=== PATIENT | female | born 1955 | race Caucasian/White ===

== ENCOUNTER → 2018-02-26 | Outpatient (CLI) | payer BC ==
[2018-02-26 11:16] LABS: HEMATOCRIT 39.9 % (36.0-47.0); HEMOGLOBIN 13.8 g/dl (12.0-15.5); MEAN CORPUSCULAR HEMOGLOBIN 31.8 pg (27.0-33.0); MEAN CORPUSCULAR HGB CONC 34.6 g/dl (32.0-36.5); MEAN CORPUSCULAR VOLUME 91.9 fl (80.0-96.0); PLATELET COUNT, AUTOMATED 241 10^3/uL (150-450); RED BLOOD COUNT 4.34 10^6/uL (4.00-5.40); RED CELL DISTRIBUTION WIDTH 11.8 % (11.5-14.5); WHITE BLOOD COUNT 4.7 10^3/uL (4.0-10.0)
[2018-02-26 11:27] LABS: INR 0.93; PROTHROMBIN TIME 12.6 SECONDS (12.1-14.4)
[2018-02-26 12:04] LABS: ALBUMIN 3.8 GM/DL (3.2-5.2); ALBUMIN/GLOBULIN RATIO 1.19 (1.00-1.93); ALKALINE PHOSPHATASE 91 U/L (45-117); ALT/SGPT 25 U/L (12-78); ANION GAP 7 MEQ/L (8-16); AST/SGOT 18 U/L (7-37); BILIRUBIN,TOTAL 0.3 MG/DL (0.2-1.0); BLOOD UREA NITROGEN 11 MG/DL (7-18); CALCIUM LEVEL 8.9 MG/DL (8.8-10.2); CARBON DIOXIDE LEVEL 28 MEQ/L (21-32); CHLORIDE LEVEL 106 MEQ/L (98-107); CREATININE FOR GFR 0.64 MG/DL (0.55-1.30); GLOMERULAR FILTRATION RATE > 60.0 (>45); GLUCOSE, FASTING 95 MG/DL (70-100); POTASSIUM SERUM 4.8 MEQ/L (3.5-5.1); SODIUM LEVEL 141 MEQ/L (136-145)
[2018-02-26 12:12] LABS: ERYTHROCYTE SEDIMENTATION RATE 13 mm/hr (0-30)
== END ==
LOC: M LAB 10:33
DX: Z01.818 Encounter for other preprocedural examination (principal); M16.12 Unilateral primary osteoarthritis, left hip
CPT/HCPCS: 71046

== ENCOUNTER 2018-03-17 05:41 | Inpatient (IN) | payer BC ==
[2018-03-17] MEDS: LR 1,000 ML IV ×3 (06:40→09:45)
[2018-03-17] MEDS ORDERED: ONDANSETRON 4MG/2ML VIAL (J2405) As Ordered (07:06)
[2018-03-17] MEDS ORDERED: dexameTHASONE 4 MG/ML 1ML VIAL (J1100) As Ordered (07:06)
[2018-03-17] MEDS ORDERED: LIDOCAINE 2% INJ 100 MG/5 ML SDV (FOR ANES.) As Ordered (07:06)
[2018-03-17] MEDS ORDERED: KETOROLAC 60 MG/2 ML VIAL (J1885) As Ordered (07:06)
[2018-03-17] MEDS ORDERED: fentaNYL 100 MCG/2 ML INJECTION (J3010) As Ordered (07:07)
[2018-03-17] MEDS ORDERED: PROPOFOL 500 MG/50 ML VIAL As Ordered (07:07)
[2018-03-17] MEDS ORDERED: MIDAZOLAM INJ 2 MG/2 ML VIAL (J2250) As Ordered (07:07)
[2018-03-17] MEDS: EPINEPHrine INJ 1 MG/ML 1ML AMP As Ordered (08:16)
[2018-03-17] MEDS ORDERED: PHENYLephrine HCL 500 MCG/5 ML (100MCG/ML) SYRINGE (J2370) As Ordered (08:16)
[2018-03-17] MEDS: ceFAZolin 1GM INJ (J0690 PER 500MG) As Ordered (08:16)
[2018-03-17] MEDS: TRANEXAMIC ACID 100 MG/ML 10ML VIAL As Ordered (08:17)
[2018-03-17] MEDS ORDERED: PROPOFOL 200 MG/20 ML VIAL As Ordered (08:41)
[2018-03-17] MEDS ORDERED: MORPHINE 1MG/ML IN 0.9% NACL 100ML IV BAG As Ordered (09:29)
[2018-03-17] MEDS ORDERED: MORPHINE 10 MG/ML 1ML VIAL (J2270) IV (09:45)
[2018-03-17] MEDS ORDERED: EPIDURAL/PCA KEYS XX (09:45)
[2018-03-17] MEDS ORDERED: NALOXONE INJ 0.4 MG/1 ML VIAL (J2310) IV (09:45)
[2018-03-17] MEDS ORDERED: ONDANSETRON 4MG/2ML VIAL (J2405) IV ×3 (09:45)
[2018-03-17] MEDS ORDERED: MORPHINE 1MG/ML IN 0.9% NACL 100ML IV BAG IV (09:45)
[2018-03-17] MEDS ORDERED: ACETAMINOPHEN TAB 650MG DOSE (2X325MG) PO (09:45)
[2018-03-17] MEDS ORDERED: NALBUPHINE HCL 10 MG/ML AMP (J2300) IV (09:45)
[2018-03-17] MEDS ORDERED: diphenhydrAMINE INJ 50MG/ML VIAL (J1200) IV (09:45)
[2018-03-17] MEDS ORDERED: fentaNYL 100 MCG/2 ML INJECTION (J3010) IV (09:45)
[2018-03-17] MEDS ORDERED: FLEET ENEMA PR (09:45)
[2018-03-17] MEDS ORDERED: PERCOCET 5MG/325MG TAB PO (09:45)
[2018-03-17] MEDS ORDERED: carBAMazepine 200 MG TAB PO (16:00)
[2018-03-17] MEDS: WARFARIN SOD 5 MG TAB PO (17:26)
[2018-03-17] MEDS: NS 1,000 ML IV (18:50)
[2018-03-17] MEDS: carBAMazepine 200 MG TAB PO (20:30)
[2018-03-18 06:55] LABS: HEMATOCRIT 33.7 % (36.0-47.0); HEMOGLOBIN 11.6 g/dl (12.0-15.5); MEAN CORPUSCULAR HEMOGLOBIN 31.3 pg (27.0-33.0); MEAN CORPUSCULAR HGB CONC 34.4 g/dl (32.0-36.5); MEAN CORPUSCULAR VOLUME 90.8 fl (80.0-96.0); PLATELET COUNT, AUTOMATED 211 10^3/uL (150-450); RED BLOOD COUNT 3.71 10^6/uL (4.00-5.40); RED CELL DISTRIBUTION WIDTH 11.9 % (11.5-14.5)
[2018-03-18 07:05] LABS: PROTHROMBIN TIME 13.3 SECONDS (12.1-14.4)
[2018-03-18] MEDS: PERCOCET 5MG/325MG TAB PO ×4 (07:26→21:30)
[2018-03-18] MEDS: SENOKOT S TAB PO ×2 (09:00→21:29)
[2018-03-18] MEDS ORDERED: PROPRANOLOL 20 MG TAB PO (09:00)
[2018-03-18] MEDS ORDERED: RIVAROXABAN 10 MG TAB (XARELTO) PO (09:00)
[2018-03-18] MEDS: PANTOPRAZOLE 40MG TAB (PROTONIX) PO (09:47)
[2018-03-18] MEDS: PROPRANOLOL 60 MG LA CAP PO (09:48)
[2018-03-18] MEDS: carBAMazepine 200 MG TAB PO ×2 (09:48→21:29)
[2018-03-18] MEDS: MIRALAX *UNIT DOSE* 17GM PACKET PO (09:49)
[2018-03-18] MEDS: PARoxetine 10MG TABLET PO (09:49)
[2018-03-18] MEDS: MOM 30ML SUSPENSION UDC PO (09:49)
[2018-03-18 10:28] LABS: ANION GAP 8 MEQ/L (8-16); BLOOD UREA NITROGEN 12 MG/DL (7-18); CALCIUM LEVEL 8.1 MG/DL (8.8-10.2); CARBON DIOXIDE LEVEL 24 MEQ/L (21-32); CHLORIDE LEVEL 105 MEQ/L (98-107); CREATININE FOR GFR 0.62 MG/DL (0.55-1.30); GLOMERULAR FILTRATION RATE > 60.0 (>45); GLUCOSE, FASTING 119 MG/DL (70-100); POTASSIUM SERUM 4.1 MEQ/L (3.5-5.1); SODIUM LEVEL 137 MEQ/L (136-145)
[2018-03-18 16:34] LABS: BEDSIDE GLUCOSE 139 MG/DL (80-115)
[2018-03-18] MEDS: WARFARIN SOD 5 MG TAB PO (17:22)
[2018-03-18 19:56] LABS: BEDSIDE GLUCOSE 157 MG/DL (80-115)
[2018-03-19] MEDS: PERCOCET 5MG/325MG TAB PO ×2 (03:16→08:14)
[2018-03-19 06:08] LABS: BEDSIDE GLUCOSE 118 MG/DL (80-115)
[2018-03-19 07:39] LABS: HEMOGLOBIN 12.5 g/dl (12.0-15.5); MEAN CORPUSCULAR HEMOGLOBIN 31.2 pg (27.0-33.0); MEAN CORPUSCULAR HGB CONC 33.8 g/dl (32.0-36.5); MEAN CORPUSCULAR VOLUME 92.3 fl (80.0-96.0); PLATELET COUNT, AUTOMATED 201 10^3/uL (150-450); RED BLOOD COUNT 4.01 10^6/uL (4.00-5.40); RED CELL DISTRIBUTION WIDTH 11.9 % (11.5-14.5); WHITE BLOOD COUNT 11.4 10^3/uL (4.0-10.0)
[2018-03-19 07:53] LABS: INR 1.52; PROTHROMBIN TIME 18.5 SECONDS (12.1-14.4)
[2018-03-19] MEDS: MIRALAX *UNIT DOSE* 17GM PACKET PO (08:13)
[2018-03-19] MEDS: PARoxetine 10MG TABLET PO (08:14)
[2018-03-19] MEDS: PROPRANOLOL 60 MG LA CAP PO (08:15)
[2018-03-19] MEDS: carBAMazepine 200 MG TAB PO (08:15)
[2018-03-19] MEDS: MOM 30ML SUSPENSION UDC PO (08:15)
[2018-03-19] MEDS: SENOKOT S TAB PO (08:15)
[2018-03-19] MEDS: PANTOPRAZOLE 40MG TAB (PROTONIX) PO (08:15)
== END 2018-03-19 12:31 | disposition home health service (06) | DRG 301 ==
LOC: M OR 05:41 → M MS5PR 11:45
PROC: 0SRB04A Replacement of Left Hip Joint with Ceramic on Polyethylene Synthetic Substitute, Uncemented, Open Approach (ICD-10-PCS; principal; 2018-03-17 07:30)
DX: M16.12 Unilateral primary osteoarthritis, left hip (principal); G40.309 Generalized idiopathic epilepsy and epileptic syndromes, not intractable, without status epilepticus; I10 Essential (primary) hypertension; K59.09 Other constipation; K21.9 Gastro-esophageal reflux disease without esophagitis; G43.909 Migraine, unspecified, not intractable, without status migrainosus; R73.03 Prediabetes; L40.9 Psoriasis, unspecified; M54.9 Dorsalgia, unspecified; Z88.1 Allergy status to other antibiotic agents; Z79.899 Other long term (current) drug therapy

== ENCOUNTER → 2018-03-22 | Outpatient (REF) | payer BC | LOC: M LABDRAW1 10:34 | DX: Z47.1 Aftercare following joint replacement surgery (principal) | CPT/HCPCS: 36415 ==

== ENCOUNTER → 2020-08-27 | Outpatient (CLI) | payer MEDICARE, OTHER ==
[~2020-08-27] MED LIST: CALC500T49 PO; CARB1TAB20 PO; COUM1TAB17 PO; MULT1TAB10 PO; NORT25CA2 PO; PANT40TA29 PO; PARO30TA3 PO; PERC5TAB12 PO; PROP60CA PO; PROP60TA14 PO; TEGR200T PO; XARE10TA PO
[2020-08-27 11:53] LABS: BASO % 0.9 % (0.0-1.0); EOS % 0.9 % (0.0-3.0); HEMOGLOBIN 14.7 g/dl (12.0-15.5); LYMPH # 1.1 10^3/uL (1.5-5.0); LYMPH % 16.1 % (24.0-44.0); MEAN CORPUSCULAR HEMOGLOBIN 31.7 pg (27.0-33.0); MEAN CORPUSCULAR HGB CONC 32.7 g/dl (32.0-36.5); MEAN CORPUSCULAR VOLUME 97.2 fl (80.0-96.0); MONO % 10.7 % (2.0-8.0); NEUTROPHILS % 71.1 % (36.0-66.0); PLATELET COUNT, AUTOMATED 279 10^3/uL (150-450); RED BLOOD COUNT 4.63 10^6/uL (4.00-5.40)
[2020-08-27 11:54] LABS: BASO # 0.1 10^3/uL (0.0-0.2); EOS # 0.1 10^3/uL (0.0-0.5); MONO # 0.8 10^3/uL (0.0-0.8)
[2020-08-27 12:31] LABS: ALBUMIN 4.3 GM/DL (3.2-5.2); ALT/SGPT 28 U/L (12-78); BILIRUBIN,TOTAL 0.3 MG/DL (0.2-1.0); BLOOD UREA NITROGEN 14 MG/DL (7-18); CALCIUM LEVEL 9.2 MG/DL (8.8-10.2); CARBON DIOXIDE LEVEL 31 MEQ/L (21-32); CHLORIDE LEVEL 102 MEQ/L (98-107); CREATININE FOR GFR 0.74 MG/DL (0.55-1.30); GLOMERULAR FILTRATION RATE > 60.0 (>45); GLUCOSE, FASTING 99 MG/DL (70-100); POTASSIUM SERUM 5.6 MEQ/L (3.5-5.1); SODIUM LEVEL 138 MEQ/L (136-145); TOTAL PROTEIN 7.1 GM/DL (6.4-8.2)
== END ==
LOC: M LAB 10:41
PROVIDERS: ATTEND Physician Assistant
DX: L40.0 Psoriasis vulgaris (principal)
CPT/HCPCS: 11900; 36415; 80053; 85025; G0463; J3301

== ENCOUNTER → 2021-10-18 | Outpatient (CLI) | payer OTHER ==
[2021-10-18 11:07] LABS: HEMATOCRIT 40.4 % (36.0-47.0); HEMOGLOBIN 13.6 g/dl (12.0-15.5); MEAN CORPUSCULAR HEMOGLOBIN 33.3 pg (27.0-33.0); MEAN CORPUSCULAR HGB CONC 33.7 g/dl (32.0-36.5); PLATELET COUNT, AUTOMATED 290 10^3/uL (150-450); RED BLOOD COUNT 4.08 10^6/uL (4.00-5.40); WHITE BLOOD COUNT 7.4 10^3/uL (4.0-10.0)
[2021-10-18 11:21] LABS: INR 0.89; PROTHROMBIN TIME 12.4 SECONDS (12.7-14.5)
[2021-10-18 11:39] LABS: ERYTHROCYTE SEDIMENTATION RATE 9 mm/hr (0-30)
[2021-10-18 11:42] LABS: ALBUMIN 4.2 GM/DL (3.2-5.2); ALT/SGPT 31 U/L (12-78); BILIRUBIN,TOTAL 0.3 MG/DL (0.2-1.0); BLOOD UREA NITROGEN 18 MG/DL (7-18); CALCIUM LEVEL 9.1 MG/DL (8.8-10.2); CARBON DIOXIDE LEVEL 33 MEQ/L (21-32); CHLORIDE LEVEL 101 MEQ/L (98-107); CREATININE FOR GFR 0.75 MG/DL (0.55-1.30); GLOMERULAR FILTRATION RATE > 60.0 (>45); GLUCOSE, FASTING 94 MG/DL (70-100); POTASSIUM SERUM 4.6 MEQ/L (3.5-5.1); SODIUM LEVEL 137 MEQ/L (136-145); TOTAL PROTEIN 7.3 GM/DL (6.4-8.2)
== END ==
LOC: M LAB 10:13
PROVIDERS: ATTEND Orthopaedic Surgery
DX: M25.551 Pain in right hip (principal); D53.9 Nutritional anemia, unspecified

== ENCOUNTER → 2023-11-17 | Outpatient (CLI) | payer OTHER | LOC: M RAD 11:53 | PROVIDERS: ATTEND Orthopaedic Surgery | DX: M25.562 Pain in left knee (principal); M79.662 Pain in left lower leg ==